=== PATIENT | female | born 1945 | race African-American/Black ===

== ENCOUNTER 2017-03-22 17:39 | Observation (INO) | payer OTHER ==
[~2017-03-22] VITALS: Ht 160 cm; Wt 95.7 kg
--- NOTE | ~2017-03-22 | HP ---
History And Physical [place] [id number] [facility] [place]. [address] NAME: KATIANA SANTORO : 49 STATUS : ADM Amalia PAT#: [id number] AGE: 72 ADM/REG DATE : 03/22/17 MR#: [id number] REPORT SERV DATE: 03/23/17 DICTATED BY: BRUNO CELESTE DATE: 03/23/17 REPORT STATUS : Draft TRANSCRIBED BY: [place] DATE: 03/23/17 DATE OF ADMISSION: 03/22/2017 CHANGE MANAGEMENT SPECIALIST: Guru Ferrera M.D. CHIEF COMPLAINT: Chest heaviness/chest pain and shortness of breath. HISTORY OF PRESENT ILLNESS: This is a pleasant 72-year-old female with a history of chronic AFib, dilated cardiomyopathy, ejection fraction 45% from 10/29/2016 echocardiogram along with hypertension, treated sleep apnea, diabetes mellitus 2. She has no history of coronary artery disease. Last stress test was 01/15/2013 and it was negative for ischemia. Yesterday, she [place] the mall and felt very fatigued with that activity. She felt her abdomen "swelled up and her right shoulder felt uncomfortable. She felt substernal chest discomfort like a fist." She did feel a little short of breath with walking. She denied any edema in her ankles. She denied any palpitations, diaphoresis, syncope or near syncope. In the evening, she noted chest discomfort with deep inspiration and felt like it was hard to breathe and that she was short of breath. She presented to the emergency department for further evaluation. She denies any fever or recent upper respiratory infection. She does tell me that recently she injured her left ankle tendon and has been using a boot after evaluation two weeks ago by physical security specialist. She reports this morning that she did feel short of breath when she was walking to the restroom. She denies any dyspnea at rest and denies any orthopnea. She feels her abdomen is still a little bit swelled up. She denies any abdominal pain, nausea, vomiting, or any other abdominal issues, however. She denies any chest pain at this time. PAST MEDICAL HISTORY: 1. Persistent AFib, status post VINCE cardioversion, 06/2016 with persistent AFib since. She is on metoprolol, Cardizem, and warfarin. 2. Abnormal EKG with history of nondiagnostic and diffuse ST changes with inferior Q-waves noted per last office visit note, 12/21/2016. 3. History of atypical chest pain. 4. Carotid bruit with bilateral category 1 carotid artery disease per ultrasound, 10/29/2014. 5. Chronic systolic and diastolic congestive heart failure. 6. Dilated cardiomyopathy, ejection fraction 45% on echocardiogram, 10/29/2016. 7. Hypertension. 8. Lower extremity edema. 9. Obstructive sleep apnea, compliant with CPAP. 10.Right ventricular hypertrophy. 11.Obesity. 12.Shellfish allergy. 13.Diabetes mellitus type 2. SOCIAL HISTORY: She denies any tobacco, alcohol or illicit drug use. FAMILY HISTORY: Positive for brother with myocardial infarction and sudden . History And Physical [address] [address] NAME: KATIANA SANTORO : 49 STATUS : ADM Amalia PAT#: [id number] AGE: 72 ADM/REG DATE : 03/22/17 MR#: [id number] REPORT SERV DATE: 03/23/17 DICTATED BY: BRUNO CELESTE DATE: 03/23/17 REPORT STATUS : Draft TRANSCRIBED BY: [place] DATE: 03/23/17 REVIEW OF SYSTEMS: As above per HPI, all other systems reviewed and negative. Note, the patient does not have any chest pain with exertion. ALLERGIES: MULTIPLE, 1. SHELLFISH, REACTION SWELLING OF FACE AND LIPS. 2. AMLODIPINE, REACTION HEART PALPITATIONS AND SWELLING. 3. ATORVASTATIN, RASH AND ELEVATED CPK. 4. WHEAT, ITCH AND LIP SWELLING. 5. ELIQUIS, FACIAL SWELLING. 6. VALSARTAN, LETHARGY. 7. LISINOPRIL, COUGH. MEDICATIONS: Home medications list reviewed and is as follows: 1. Diltiazem ER 120 mg p.o. before lunch. 2. Lasix 40 mg p.o. with breakfast and supper. 3. Levothyroxine 25 mcg p.o. before breakfast. 4. Tradjenta 5 mg p.o. every morning. 5. Metoprolol tartrate 25 mg p.o. b.i.d. 6. Potassium chloride 20 mEq p.o. three times per day. 7. Simethicone 80 mg p.o. x1 dosage taken for gas. 8. Valsartan 80 mg p.o. with supper. This is a new therapy with the patient complaining of lethargy while taking this medication. 9. Jantoven 4 mg p.o. at bedtime. PHYSICAL EXAMINATION: VITAL SIGNS: Oxygen saturation 97% on room air, weight 95.7 kg, temperature 99.6, pulse 97, respiratory rate 18, blood pressure 158/70. GENERAL: Well developed, well nourished. In no apparent distress. HEENT: Head normocephalic. No xanthelasma. Sclera clear, anicteric. Moist mucous membranes without pallor. No lymphadenopathy. No deficits noted. NECK: Trachea midline. Supple. No thyromegaly, JVD, or bruits. RESPIRATORY: Unlabored respirations. Breath sounds clear bilaterally to posterior auscultation. No wheezes, rhonchi or crackles. CARDIOVASCULAR: 1/6 diastolic murmur auscultated. No chest wall tenderness to palpation. Irregularly irregular and tachycardic rate. ABDOMEN: Soft, nontender, question mildly distended and soft versus obese. Active bowel sounds auscultated x4 quadrants. No organomegaly, no masses. No aortic bruit. EXTREMITIES: DP/PT and radial pulses 2+ bilaterally. No clubbing, cyanosis, or edema. SKIN: Warm, dry, intact. No rash. Normal turgor. MUSCULOSKELETAL: Moves all extremities in bed without difficulty. NEURO/PSYCH: Alert and oriented x3 with no acute distress. Affect appropriate to current situation. LABORATORY DATA: BMP: Sodium 140, potassium 4.2, creatinine 0.94, glucose elevated at 164, calcium 8.6, magnesium 1.9. History And Physical [address] [address] NAME: KATIANA SANTORO : 49 STATUS : ADM Amalia PAT#: [id number] AGE: 72 ADM/REG DATE : 03/22/17 MR#: [id number] REPORT SERV DATE: 03/23/17 DICTATED BY: BRUNO CELESTE DATE: 03/23/17 REPORT STATUS : Draft TRANSCRIBED BY: [place] DATE: 03/23/17 CBC: White blood cell count 8.7, hemoglobin 13.8, hematocrit 41.2, platelets 306. INR yesterday at 2.0, today 2.3. Troponin less than 0.02 x3. BNP mildly elevated at 136. STUDIES: Chest x-ray, left lung clear. Mild elevation of the right hemidiaphragm with atelectasis in the right medial base which is unchanged from prior chest x-ray, 07/24/2016. EKG, personally interpreted, atrial fibrillation with heart rate in multiple EKGs in the 90s to low 100 range. No ischemia. Telemetry, AFib with PVCs frequently noted. Rate 90s to low 100. No events on monitor. ASSESSMENT AND PLAN: 1. Substernal chest pain and right shoulder pains. This pain is atypical in features with no exertional component. It is worse with deep inspiration, and is more of described as a heaviness. Three negative troponins. EKGs with nonspecific ST changes, but with no acute ischemia. Cardiac risk factors include age, diabetes mellitus 2, family history, hypertension. I planned a nuclear stress test. As the patient has recently injured her ankle, a vasodilator stress test was requested. Vasodilators stress test was obtained and revealed no ischemia. This is considered to be an overall low risk vasodilator stress test as EKG and perfusion images were normal. However, left ventricular ejection fraction per nuclear stress test had declined to less than 30%. Given no ischemia, RN will discharge the patient to home after a limited echocardiogram is obtained today to better visualize left ventricular ejection fraction. She is to follow up with her restorative art embalmer, Dr. Ferrera within three to four weeks along with her primary care provider. 2. Dyspnea. This is in a patient with chronic systolic and diastolic congestive heart failure with a very mildly elevated BNP. I do not believe that she is having an acute exacerbation of heart failure at this time. However, I think with elevated heart rate with atrial fibrillation, she would benefit from one dosage of Lasix 40 mg IV x1 this morning. Otherwise on discharge, she is to continue her home Lasix twice per day. She is to continue to weigh herself daily record and follow heart failure guidelines. Again, follow up with Dr. Ferrera. 3. Chronic atrial fibrillation. Her heart rate is slightly elevated in the 90s to low 100s range. I have increased her home Cardizem from 120 mg to 180 mg p.o. daily. I will continue warfarin on current doses. Her INR is therapeutic at 2.3 today. Again, close followup with primary care provider and with Dr. Ferrera. 4. Chronic systolic and diastolic heart failure. Please see discussion above. After additional dosage of Lasix 40 IV x1, we will continue home medications which is Lasix 40 mg twice per day. 5. Diabetes mellitus 2. She is on sliding scale insulin while here and will be discharged on home medications with close followup with primary care provider in one week. 6. Hypertension. I note that she has multiple drug intolerances including amlodipine, valsartan, and lisinopril. Again, I will increase diltiazem for both better heart rate control for atrial fibrillation and better blood pressure control. Again, follow up with primary care provider. 7. Fatigue. Follow up with primary care provider in one week. The patient has been seen History And Physical [address] [address] NAME: KATIANA SANTORO : 49 STATUS : ADM Amalia PAT#: [id number] AGE: 72 ADM/REG DATE : 03/22/17 MR#: [id number] REPORT SERV DATE: 03/23/17 DICTATED BY: BRUNO CELESTE DATE: 03/23/17 REPORT STATUS : Draft TRANSCRIBED BY: [place] DATE: 03/23/17 down in the stress testing area by rounding restorative art [facility]mer [facility]. MIGUEL/OH Bruno Celeste NP / [id number] CC: Lynda Guy, MSN, ORACLE ARCHITECT- Matt Yadav M.D. Elmer Philip Lehman, IV, MD
[~2017-03-22 17:39] MED LIST: ANADS PO; AT25 PO; CARTIA XT120 MG/24 PO; COZ50 PO; DIOVAN40 MG PO; ELIQUIS 5 MG TAB5 MG PO; JANTOVEN4 MG PO; K500 PO; KLOR-CON M2020 MEQ PO; L20 PO; L40 PO; LOP25 PO; MOMUD PO; NORV10 PO; PERCOCET1 TA2 PO; SYN.025B PO; TRADJENTA5 MG PO; Z300 PO; [UNRECOGNIZED DRUG - REMARK]
[2017-03-22 18:24] LABS: BASOPHILS 0.2 %; BASOPHILS ABSOLUTE 0.02 10/3/uL (0.0-0.16); EOSINOPHILS 0.7 %; EOSINOPHILS ABSOLUTE 0.06 10/3/uL (0.0-0.53); HEMATOCRIT 41.2 % (36.0-48.0); HEMOGLOBIN 13.8 g/dL (12.0-16.0); IMMATURE GRANULOCYTES 0.5 %; IMMATURE GRANULOCYTES ABSOLUTE 0.04 10/3/uL (0.0-0.11); LYMPHOCYTES 20.2 %; LYMPHOCYTES ABSOLUTE 1.75 10/3/uL (0.67-4.30); MEAN CORPUS HGB CONC 33.5 g/dL (32.0-36.0); MEAN CORPUSCULAR HEMOGLOB 29.9 pg (26.0-34.0); MEAN PLATELET VOLUME 9.5 fL (9.2-13.0); MONOCYTES 8.2 %; MONOCYTES ABSOLUTE 0.71 10/3/uL (0.21-1.20); NEUTROPHILS 70.2 %; NEUTROPHILS ABSOLUTE 6.09 10/3/uL (2.02-8.40); PLATELET COUNT 306 10/3/uL (150-400); RED CELL COUNT 4.61 10/6/uL (4.0-5.6)
[2017-03-22 18:25] LABS: ER CBC TAT 0 Hrs 07 Mins; MANUAL DIFF NO %; MEAN CORPUSCULAR VOLUME 89.4 fL (80-100); WHITE BLOOD CELLS 8.7 10/3/uL (4.5-10.5)
[2017-03-22 18:34] LABS: PARTIAL THROMBO TIME 35.2 SEC (22.5-37.2)
[2017-03-22 18:35] LABS: PROTIME (NOT ORD) 22.9 SEC (12.0-14.5)
[2017-03-22 18:40] LABS: BUN (BLOOD UREA NITROGEN) 10 MG/DL (6-23); CALCIUM, SERUM 8.6 MG/DL (8.5-10.4); CHEST PAIN PROFILE TAT 0 Hrs 22 Mins; CHLORIDE, SERUM 100 MMOL/L (96-112); CO2 (CARBON DIOXIDE) 34 MMOL/L (24-34); CREATININE 0.94 MG/DL (0.55-1.02); GFR AFRICAN AMERICAN 71 ML/MIN (>=60); GFR NON AFRICAN AMERICAN 61 ML/MIN (>=60); SODIUM, SERUM 140 MMOL/L (135-148); TROPONIN I <0.02 NG/ML (<0.05)
[2017-03-22 18:43] LABS: GLUCOSE, SERUM 164 MG/DL (60-99); POTASSIUM, SERUM 4.2 MMOL/L (3.5-5.3)
[2017-03-22] MEDS ORDERED: LOP25 PO (19:48)
[2017-03-22] MEDS ORDERED: DIOV80 PO (19:49)
[2017-03-22] MEDS ORDERED: CARTIA XT120 MG/24 PO (19:51)
[2017-03-22] MEDS ORDERED: JANTOVEN4 MG PO (19:51)
[2017-03-22] MEDS ORDERED: KLOR-CON M2020 MEQ PO (19:52)
[2017-03-22] MEDS ORDERED: L40 PO (19:52)
[2017-03-22] MEDS ORDERED: SYN.025B PO (19:53)
[2017-03-22] MEDS ORDERED: TRADJENTA5 MG PO (19:53)
[2017-03-22] MEDS ORDERED: MYTAB GAS80 MG PO (19:54)
[2017-03-23 07:29] LABS: INTERNATIONAL NORMAL RATI 2.3 UNITS (-); PROTIME (NOT ORD) 25.3 SEC (12.0-14.5)
[2017-03-23] MEDS ORDERED: CARDIZEM LA180 MG PO (16:39)
== END 2017-03-23 18:09 | disposition home or self-care (01) ==
LOC: ER 17:39 → CDU1 19:47 → CDU2 19:47
PROVIDERS: Clinical Nurse Specialist; Hospitalist
DX: R07.2 Precordial pain (principal); R06.00 Dyspnea, unspecified; I48.2 Chronic atrial fibrillation; I50.42 Chronic combined systolic (congestive) and diastolic (congestive) heart failure; E11.9 Type 2 diabetes mellitus without complications; I11.0 Hypertensive heart disease with heart failure; R53.83 Other fatigue; Z91.013 Allergy to seafood; Z88.1 Allergy status to other antibiotic agents; Z91.018 Allergy to other foods; Z88.8 Allergy status to other drugs, medicaments and biological substances; G47.33 Obstructive sleep apnea (adult) (pediatric); Z99.89 Dependence on other enabling machines and devices
CPT/HCPCS: 71010; 78452; 80048; 82962; 83735; 83880; 84484; 85025; 85610; 85730; 93005; 93017; 93307; 96374; 99285; A9270-GY; A9502; G0378; J0153